=== PATIENT | male | born 1970 | race Caucasian/White ===

== ENCOUNTER 2025-02-13 16:15 | Day surgery (SDC) | payer OTHER, SELFPAY ==
[2025-02-13] VITALS (20 sets, daily range): BP systolic 81–153; BP diastolic 58–96; BMI 30.1
[2025-02-13 12:41] LABS: Hematocrit 43.9 % (39.0-52.0); Hemoglobin 15.6 g/dL (13.0-18.0); Mean Corp Hgb Conc. 35.5 g/dL (33.0-37.0); Mean Corpuscular Volume 86.8 fL (80.0-94.0); Nucleated Red Blood Cells % 0 % (-); Platelet Count 260 10^3/uL (130-400); Red Cell Dist. Width 12.5 % (11.5-14.5)
[2025-02-13 12:54] LABS: ALT (SGPT) 24 U/L (0-50); AST (SGOT) 23 U/L (17-59); Albumin 4.4 g/dl (3.5-5.0); Alkaline Phosphatase 55 U/L (38-126); Blood Urea Nitrogen 15 mg/dl (9-20); Calcium 9.4 mg/dl (8.4-10.2); Carbon Dioxide 25 mmol/L (22-30); Chloride 103 mmol/L (98-107); Estimated Creatinine Clearance 112 ml/min; Glucose 114 mg/dl (70-99); Lipase 69 U/L (23-300); Potassium 3.9 mmol/L (3.5-5.1); Sodium 135 mmol/L (135-145); Total Protein 7.3 g/dl (6.3-8.2); eGFR > 60.00
--- NOTE | 2025-02-13 13:03 | ED.GENMED ---
History of Present Illness
General
Chief Complaint: Abdominal Pain
Source: patient and spouse
Exam Limitations: none
Time Seen by Provider: 02/13/25 12:54
Nursing documentation reviewed up to this point in time: agreed with
History of Present Illness
History of Present Illness:
Note:
CHIEF COMPLAINT(S)
Right lower abdominal pain
HISTORY OF PRESENT ILLNESS
The patient is a 54-year-old male who presented with pain starting near the umbilical area and radiating to the right lower quadrant (RLQ) without any specific inciting injury. The patients symptoms began acutely while at work. He denied any
episodes of vomiting, but noted a decrease in appetite and sensations of nausea described as 'a little bit like airy.' He reports episodes of heartburn throughout his life and has been taking his medication for it. He also experienced diarrhea a few
times since the onset of pain but mentioned that his last bowel movement prior to the episode was normal. He suspects appendicitis based on the symptoms described.
The patient expressed awareness of the potential need for surgical intervention should his appendix be involved. His white blood cell count was reported as slightly elevated at 13.6, suggesting an inflammatory or infectious process.
PAST MEDICAL AND SURGICAL HISTORY
Chronic heartburn
MEDICATIONS
The patient reports using medication for heartburn.
PHYSICAL EXAM
General: Alert, no acute distress.
Skin: Warm, dry.
Head: Normocephalic, atraumatic.
Neck: Supple, trachea midline.
Eye, Ears, Nose, Mouth, and Throat: Oral mucosa moist.
Cardiovascular: Normal peripheral perfusion, No edema.
Respiratory: Respirations are non-labored.
Gastrointestinal: Tenderness noted in the right lower quadrant; abdomen nondistended.
Back: Normal range of motion, Normal alignment.
Musculoskeletal: Normal range of motion, normal strength.
Neurological: Alert and oriented to person, place, time, and situation, No focal neurological deficit observed.
Psychiatric: Cooperative, appropriate mood & affect.
PROBLEM LIST
Acute:
- Right lower quadrant abdominal pain
- Elevated white blood cell count
- Nausea
Chronic:
- Chronic heartburn
PLAN
1. Conduct a CT scan with contrast to evaluate for appendicitis or alternative causes of abdominal pain, such as kidney stones or bowel inflammation.
2. Provide intravenous Zofran (ondansetron) for nausea relief.
3. Administer oral Tylenol (acetaminophen) for pain management, avoiding NSAIDs due to potential anticoagulant effects.
4. Discuss potential surgical intervention pending CT results. Likely laparoscopic appendectomy if appendicitis is confirmed.
5. Hospital admission for continued monitoring and management.
DIFFERENTIAL DIAGNOSIS
The Differential Diagnosis includes, in no particular order and is not limited to:
- Appendicitis
- Kidney stones
- Inflammatory bowel disease
- Gastroenteritis
- Urinary tract infection
- Diverticulitis
- Bowel obstruction
- Gastroesophageal reflux disease
- Peptic ulcer disease
- Hepatitis or liver disease
CARE-UPDATE
02/13/25 - 19:43
The patient is a 54-year-old male with acute appendicitis. General surgery has evaluated the patient and will admit him for surgical intervention. The plan is to take the patient to the operating room (OR) for an appendectomy. Preoperative consent
has been obtained, and antibiotics have been administered per protocol.
Disposition:
SUMMARY OF ENCOUNTER
The patient, a 54-year-old male, presented to the emergency department with pain starting near the umbilical area and radiating to the right lower quadrant (RLQ). The patient denied any vomiting but reported nausea, decreased appetite, and diarrhea.
A slightly elevated white blood cell count of 13.6 suggested an inflammatory process. Based on symptoms and evaluation, a diagnosis of acute appendicitis was made.
DISPOSITION
Admit to general surgery.
ASSESSMENT
Acute appendicitis.
EMERGENCY TREATMENTS ADMINISTERED
Intravenous piperacillin-tazobactam (Zosyn) was given.
Intravenous fluids were administered.
MANAGEMENT OF THE PATIENTS CARE WAS DISCUSSED WITH
General surgery team evaluated the patient for potential surgical intervention.
PLAN
Admit the patient for surgical intervention, likely appendectomy, under the care of general surgery.
MEDICAL DECISION MAKING
- Complexity of Data Reviewed: Chronic conditions affecting care [Chronic heartburn]. Differential Diagnosis includes appendicitis, kidney stones, inflammatory bowel disease, gastroenteritis, urinary tract infection, diverticulitis, bowel
obstruction, gastroesophageal reflux disease, peptic ulcer disease, hepatitis or liver disease.
- Data:
Category 1
My independent review of CBC indicates an elevated white blood cell count of 13.6, suggesting an inflammatory process.
Category 3
Discussion of management with the general surgery team regarding the surgical intervention.
DIAGNOSIS
Acute appendicitis (K35.80).
Past History
Past History
ED Past Medical History: None
ED Past Surgical History: None
Social History
Tobacco: Non-smoker
Personal:
Living: with family
Employment: Employed
Family History
Family History: Unable to obtain
Phy Exam
Physical Exam
Physical Exam:
.
Course
Orders/Labs/Results
Orders:
Orders
02/13/25 12:29
Complete Blood Count/With Diff Urgent
Comprehensive Metabolic Panel Urgent
Lipase Urgent
02/13/25 13:02
IV Insert/Care/Rem.- Treatment PRN
Acetaminophen [Tylenol] 650 mg PO NOW STA
Ondansetron Injectable [Zofran] 4 mg IV NOW STA
02/13/25 13:03
CT Abd/pelvis W Iv Cont Urgent
Comment:
Reason For Exam: RLQ tenderness since yesterday
Lactated Ringers [Lr] 1,000 ml IV BOLUS
02/13/25 13:09
Ondansetron Injectable [Zofran] 4 mg .ROUTE .STK-MED ONE
02/13/25 14:29
Piperacillin/Tazo 4.5 Gram [Zosyn] 4.5 gram in 100 ml IV NOW
02/13/25 Dinner
Regular
At Your Request: Full Participation
Does patient need a safe tray?: No
02/13/25 16:02
Fentanyl Citrate/Pf [Sublimaze] 25 mcg IV [id number] PRN
HYDROmorphone [Dilaudid] 0.25 mg IV PACU-Q5MPRN PRN
HYDROmorphone [Dilaudid] 0.5 mg IV PACU-Q5MPRN PRN
Ondansetron Injectable [Zofran] 4 mg IV PACU-ONCEPRN PRN
Prochlorperazine [Compazine] 5 mg IV PACU-ONCEPRN PRN
Notify MD As Directed
Notify physician if: for SDS patients with known or suspected sleep obstructive sleep apnea, monitor in the
PACU.
Notify MD for any apneic/desaturation episodes
O2 Therapy [RESP] Urgent
Titrate/Wean O2 to maintain O2 sat greater than (%): 92
Special Instructions: -Provide supplemental oxygen to achieve O2 sat of 92% or greater.
-After 15 min, may wean O2 and discontinue if patient is able to maintain O2 sat of 92%
or greater during recovery period.
If patient is a discharge home, without oxygen therapy, notify anestheiologist if
unable to maintain O2 SAT of 92% or greater on room air for MD clearance.
02/13/25 16:12
Admit Patient As Directed
Co-Sign Provider:
Level of Care: Post Proc/Surg Recovery
Assign to:: Medical/Surgical
Physician / Group: Clyde / VERONIQUE
Diagnosis: Acute appendicitis
Reason for Overnight Stay: Standard of Care
Code Status As Directed
Resuscitation Status: Full Code
HYDROmorphone [Dilaudid] 0.5 mg IV Q2HPRN PRN
Ketorolac [Toradol] 10 mg IV Q6HPRN PRN
Ondansetron Injectable [Zofran] 4 mg IV Q6HPRN PRN
Oxycodone [Roxicodone] 5 mg PO Q4HPRN PRN
Activity As Directed
Activity Level: Ambulate
Intake/ Output As Directed
Frequency: Per unit guidelines
Vital Signs As Directed
Frequency: Per unit guidelines
PRN Pain Medication Management As Directed
May give lesser potent ordered pain med per pt: Yes
preference::
Protocol:: Medication orders for pain may be administered in a
manner that supports deferring to patient preference
when the pt is:
- Requesting an ordered lesser potent pain medication.
Least to most potent pain medications are defined
as: acetaminophen < NSAID < tramadol < opioids
(morphine, oxycodone, hydromorphone).
- Requesting a lesser dose of the same medication IF
ORDERED.
- Requesting a less intrusive route of administration
if both routes are prescribed by the provider (PO <
IV).
02/13/25 16:13
Pneumatic Compression Sleeves As Directed
Type: Knee high
Rx Incentive Spirometry [RESP] Routine
Frequency: q1h while awake
# of times per hour: 10
DX Deep Vein Thrombosis Video Routine
02/13/25 16:15
Normosol (Mult Electrolytes) [Normosol-R/Plasmalyte-A] 1,000 ml IV 100 mls/hr
Normosol (Mult Electrolytes) [Normosol-R/Plasmalyte-A] 1,000 ml IV PER PROTOCOL
Normosol (Mult Electrolytes) [Normosol-R/Plasmalyte-A] 1,000 ml IV PER PROTOCOL
02/13/25 16:17
Fentanyl Citrate/Pf [Sublimaze] 25 mcg IV [id number] PRN
HYDROmorphone [Dilaudid] 0.25 mg IV PACU-Q5MPRN PRN
HYDROmorphone [Dilaudid] 0.5 mg IV PACU-Q5MPRN PRN
Ondansetron Injectable [Zofran] 4 mg IV PACU-ONCEPRN PRN
Prochlorperazine [Compazine] 5 mg IV PACU-ONCEPRN PRN
02/13/25 16:19
Bupivacaine 0.25%Pf/Epinephrin [Sensorcaine-Epi 0.25%-0.0005] 30 ml .ROUTE .STK-MED ONE
02/13/25 16:28
Midazolam HCl [Versed] 2 mg .ROUTE .STK-MED ONE
02/13/25 17:01
Acetaminophen 1000MG/100Ml [Ofirmev] 1,000 mg in 100 ml .ROUTE .STK-MED
Fentanyl Citrate/Pf [Sublimaze] 100 mcg .ROUTE .STK-MED ONE
02/13/25 17:06
Fentanyl Citrate/Pf [Sublimaze] 100 mcg .ROUTE .STK-MED ONE
Lidocaine 2% Mpf [Xylocaine Mpf 2%] 100 mg .ROUTE .STK-MED ONE
Propofol [Diprivan] 20 ml .ROUTE .STK-MED
Rocuronium [place] [Rocuronium] 50 mg .ROUTE .STK-MED ONE
02/13/25 17:08
OR Pathology Routine
Pre-Operative Diagnosis: ACUTE APPENDICITIS
Post-Operative Diagnosis: SAME
Operative Procedure: LAP APPY
Surgeon: CLYDE
Circulating Nurse: MARLYS
Specimen Type: APPENDIX
02/13/25 17:16
Sugammadex Sodium [Bridion] 200 mg .ROUTE .STK-MED ONE
02/13/25 20:00
Acetaminophen [Tylenol] 650 mg PO Q4HWA
Piperacillin/Tazo 3.375 Gram [Zosyn] 3.375 gram in 50 ml IV Q6H
02/14/25 18:00
Enoxaparin Sodium [Lovenox] 40 mg SC QPM
Abnormal Lab Results
02/13/25
12:29
WBC 13.6 H 10^3/uL
(4.8-10.8)
Absolute Neuts (auto) 10.2 H 10^3/uL
(1.4-6.5)
Absolute Monos (auto) 1.8 H 10^3/uL
(0.1-0.6)
Neutrophils % 75.4 H %
(42.2-75.2)
Lymphocytes % 10.2 L %
(20.5-51.1)
Monocytes % 13.3 H %
(1.7-9.3)
Glucose 114 H mg/dl
(70-99)
Total Bilirubin 1.8 H mg/dl
(0.2-1.3)
02/13/25 12:29
02/13/25 12:29
Vital Signs
Initial and Last Documented VS:
Initial Vital Signs
Temp Pulse Resp BP Pulse Ox
99.4 F 102 16 127/86 98
02/13/25 11:59 02/13/25 11:59 02/13/25 11:59 02/13/25 11:59 02/13/25 11:59
Last Documented Vital Signs
Temp Pulse Resp BP Pulse Ox
97.2 F 82 22 113/75 94
02/13/25 18:20 02/13/25 19:01 02/13/25 19:01 02/13/25 19:01 02/13/25 19:05
*Pulse Oximetry
SaO2: 98
Oxygen Mode of Delivery: Room air
Patient hypoxic: no
*Critical Care Note
Total Time (30-74mins, 75-104mins- exclusive of procedures): Not Applicable
ED Attending Note
-
Portions of this chart may have been created with voice recognition software.� Occasional wrong word or��sound alike� substitutions may have occurred due to the inherent limitations of voice recognition software.
Discharge Plan
Departure
Patient Disposition: Admit
Date of Disposition: 02/13/25
Time of Disposition: 14:28
Presentation/result/management discussed w/ accepting MD/DO: Gen surg Dr. Laureano
Patient with high blood pressure during this ER visit?: Yes
Condition: Good
Discharge Problem:
Acute appendicitis
Interventions
Interventions:
*Risk Screen - Suicide Last Done: 02/13/25 11:59
*General Assessment Last Done: 02/13/25 12:26
*Neglect/Abuse Screening Last Done: 02/13/25 12:26
*ED COVID-19 Vaccine History Last Done: 02/13/25 12:26
*ED Influenza Vaccine History Last Done: 02/13/25 12:26
*Nursing Disposition Last Done: 02/13/25 16:12
JU-Krkefu-Crttabcjkw Assessment Last Done: 02/13/25 12:26
Discharge Date and Time
Discharge Date/Time: 02/13/25 16:13
[2025-02-13] MEDS: LR 1000 IV (13:10)
[2025-02-13] MEDS: TYLENOL 650 MG PO ×2 (13:10→19:58)
[2025-02-13] MEDS: ZOFRAN 4 MG IV (13:10)
[2025-02-13] MEDS: ZOSYN 100 IV (14:44)
--- NOTE | 2025-02-13 15:09 | HPS.HSE ---
Family Physician
-
Family Physician: Cheri Burden
Chief Complaint
-
RLQ abdominal pain
History of Present Illness
Patient is a 54 yo M with no pertinent PMH who presents with 24 to 48 hours of RLQ abdominal pain. States that he had worsening of his intermittent chronic reflux on Wednesday. Yesterday he was at work and developed chills and abdominal discomfort.
Currently he has RLQ abdominal pain. Mildly improved. Associated nausea, but no vomiting. No urinary symptoms. No GI symptoms no chronic GI issues. Prior colonoscopy unremarkable (not at ). No notable family history.
Medical History
Past Medical History
Past Medical History: Reports None
Past Surgical History: Reports None
Social History
Tobacco: Non-smoker
Alcohol: Occasional
Drug: None
Personal:
Living: With Family
Family History
Family History: Not pertinent
Allergies / Home Medications
Allergies reflects when Allergies were last updated in [employer].
Home Medications with original date entered in [employer]
Allergy/Medication List:
Seasonal
Review of Systems
-
A 12 point ROS was completed and negative except as noted: Yes
Physical Exam
Vital Signs
Vital Signs
Temp Pulse Resp BP Pulse Ox
99.4 F 93 17 114/70 95
02/13/25 11:59 02/13/25 14:57 02/13/25 14:57 02/13/25 14:57 02/13/25 14:57
Physical Exam
General: Well Developed, Well Nourished and No Apparent Distress
HEENT: NormoCephalic and Anicteric
Respiratory: Non Labored Respirations
Cardiac: Regular Rhythm
GI: Soft, Non Distended, Tender (RLQ) and Other (Non-peritoneal)
Musculoskeletal: No Edema
Skin: Warm and Dry
Neuro: Nonfocal/grossly intact
Laboratory Results
-
02/13/25 12:29
02/13/25 12:29
Laboratory Results
Total Bilirubin 1.8 mg/dl (0.2-1.3) H 02/13/25 12:29
AST 23 U/L (17-59) 02/13/25 12:29
ALT 24 U/L (0-50) 02/13/25 12:29
Alkaline Phosphatase 55 U/L (38-126) 02/13/25 12:29
Lipase 69 U/L (23-300) 02/13/25 12:29
Data Reviewed
-
CT Scan: Image Personally Visualized and interpreted and Report Reviewed by me
Lab Data: Labs Reviewed by me
Impression/Plan
-
IMPRESSION:
Patient is a 54 yo M p/w acute appendicitis
The natural history and pathophysiology of appendicitis was discussed. CT scan imaging as relates to his appendix was reviewed. Options for management including medical management with antibiotics versus surgical management with appendectomy were
considered and discussed. Pros and cons of both approaches was discussed. Specifically, we discussed failure of medical management and future episodes of appendicitis versus surgical risks. He has an increased risk for failure of medical
management given the presence of appendicoliths. Recommend and plan for appendectomy.
Plan for a laparoscopic appendectomy. The procedure itself, as well as the risks, benefits, and alternatives was discussed. Specifically, we discussed the risks of bleeding, infection, injury to surrounding structures (bowel, bladder), staple line
leak, need for open procedure. Specifically discussed the potential increased risk for infectious complications given the questionable perforated nature of his appendicitis. Typical postprocedural recovery was discussed. All questions answered.
Consent signed.
PLAN:
-- Laparoscopic appendectomy
-- NPO, IVF
-- Zosyn
--- NOTE | 2025-02-13 16:16 | W.SUR.PREOP ---
Pre-Operative Surgical Note
-
I have examined this patient prior to the performance of the scheduled procedure.
The patient's condition is unchanged from the time of the current History and
Physical and the patient is able to undergo the scheduled procedure.
--- NOTE | 2025-02-13 17:26 | W.IMMPOSTOP ---
Surgical Immed Post Op Note
-
Primary Surgeon: Georgi
Assisting Surgeon: None
Pre-op Diagnosis: Acute appendicitis
Post-op Diagnosis: Acute appendicitis
Procedure Performed: Laparoscopic appendectomy
Anesthesia Type: General
Specimen / Cultures:
1. Appendix
Estimated Blood Loss: 3 cc
Complications: None
Operative Findings:
1. Acutely inflamed, gangrenous appendix, healthy base, no evidence of perforation
2. Mesentery taken with LigaSure, base with enciso load stapler flush with cecum
[2025-02-13] MEDS: ZOSYN 50 IV (19:58)
[2025-02-13] MEDS: NORMOSOL-R/PLASMALYTE-A 1000 IV (20:11)
[2025-02-13] MEDS: TYLENOL PO (23:47)
[2025-02-14] MEDS: ZOSYN 50 IV ×2 (01:51→08:14)
[2025-02-14] MEDS: TYLENOL 650 MG PO (01:57)
[2025-02-14] MEDS: TYLENOL PO ×2 (05:32→08:19)
--- NOTE | 2025-02-14 07:06 | W.PN.GS2 ---
Today's Communication / Plan
-
-- DC today
Assessment / Plan
-
Patient is a 54 yo M POD#1 s/p laparoscopic appendectomy
AVSS
No repeat labs
Recovering well. No postoperative concerns. Discharge today.
-- Regular diet
-- Abx: Zosyn, none needed on DC
-- Pain control: Tylenol, Toradol, Oxycodone
-- HLIV
-- DVT: Lovenox, SCDs
-- DC today
Subjective Data
-
Date of Service: February 14, 2025
No major concerns or complaints. Pain well-controlled. No nausea or vomiting. Passing flatus, no BM. Afebrile.
Objective Data
-
Intake and Output
02/13/25 02/14/25 02/15/25
06:59 06:59 06:59
Intake Total 1730 / 1730
Balance 1730 / 1730
Intake:
Oral fluids 480 / 480
IV fluids (Total) 1150 / 1150
normosol 150 / 150
IV piggybacks 100 / 100
Other:
Number of approximated MODERATE 2
amounts of urine
Number of approximated LARGE 1
amounts of urine
Vital Signs
Temp Pulse Resp BP Pulse Ox
98.1 F 75 16 120/72 95
02/13/25 22:01 02/13/25 23:23 02/13/25 23:23 02/13/25 23:23 02/13/25 23:23
Lab Results
02/13/25 12:29
02/13/25 12:29
Calcium 9.4 mg/dl (8.4-10.2) 02/13/25 12:29
Total Bilirubin 1.8 mg/dl (0.2-1.3) H 02/13/25 12:29
AST 23 U/L (17-59) 02/13/25 12:
ALT 24 U/L (0-50) 02/13/25 12:
Alkaline Phosphatase 55 U/L (38-126) 02/13/25 12:
Total Protein 7.3 g/dl (6.3-8.2) 02/13/25 12:
Albumin 4.4 g/dl (3.5-5.0) 02/13/25 12:
Physical Exam
-
Gen: NAD
Abd: soft, mild tenderness, ND, non-peritoneal, incisions c/d/i - no erythema, ecchymosis or drainage
Patient has a isaacs catheter: No
Patient has a central line: No
[2025-02-14] MEDS: TORADOL 10 MG IV (08:14)
[2025-02-14 08:19] VITALS: BP 111/76
== END 2025-02-14 10:30 | disposition home or self-care (01) ==
LOC: SDS 16:15
PROVIDERS: Emergency Medicine; ATTENDING PHYSICIAN Surgery; EMERGENCY PHYSICIAN Emergency Medicine; FAMILY PHYSICIAN Family Medicine
DX: C7A.8 Other malignant neuroendocrine tumors (principal); K35.891 Other acute appendicitis without perforation, with gangrene
CPT/HCPCS: 44970; 74177; 80053; 83690; 85025; 88304; 88341; 88342; 96361; 96365; 96375; 99285; Q9967